=== PATIENT | female | born 1995 ===

== ENCOUNTER 2018-11-21 10:47 | Emergency (ER) | payer MEDICAID ==
--- NOTE | 2018-11-21 14:12 | EDM.PDOC ---
ED HPI GENERAL MEDICAL PROBLEM - General Chief Complaint: [employer] Problem Stated Complaint: CRAMPING AND PAIN, THINKS MISCARRIED Time Seen by Provider: 11/21/18 11:00 Source of Information: Reports: Patient History Limitations: Reports: No Limitations - History of Present Illness INITIAL COMMENTS - FREE TEXT/NARRATIVE: seen last week in [facility] care after positive home test X2. Was told she's probably 1-2 weeks along, she thinks maybe more like 4. LMP 16 October, heavy. This morning at work started to have significant suprapubic cramping and vaginal bleeding. No urinary symptoms such as urgency, frequency, foul smell. Passed a couple large clots then came here. No previous . Was on depo shot, last dose Mar, stopped in June, but periods have been quite irregular. Has known boyfriend a long time and sexually active the past couple months. No history STD or testing. Does not feel lightheaded, dizzy, or any other abdominal pain, just very strong menstrual cramps. No diarrhea or vomiting. Lower abdominal Pain Score (Numeric/FACES): 2 - Related Data Allergies Allergy/AdvReac Type Severity Reaction Status Date / Time No Known Allergies Allergy Verified 11/21/18 12:30 Home Meds: Home Meds Vit #76/Iron,Carb/Fa [Prenatabs Rx] 1 tab DAILY 11/21/18 [History] Past Medical History Respiratory History: Reports: Asthma Genitourinary History: Reports: None [employer] History: Reports: : 1 Para: 0 LMP (Approximate): 1 Month Other [employer] History: Neurological History: Reports: Migraines Psychiatric History: Reports: Anxiety, Panic Attack - Past Surgical History HEENT Surgical History: Reports: Adenoidectomy, Tonsillectomy Female Surgical History: Reports: None Social & Family History - Family History Family Medical History: Noncontributory - Tobacco Use Smoking Status *Q: Never Smoker - Caffeine Use Caffeine Use: Reports: Coffee, Energy Drinks, Soda, Tea - Alcohol Use Alcohol Use History: Yes Alcohol Use Comment: occasional social drink. Stopped once she found out she was . - Recreational Drug Use Recreational Drug Use: No - Living Situation & Occupation Social History Comment: family about 2 hrs away, roommate accompanies today, sexually active 1 partner, has known for several years. ED ROS GENERAL - Review of Systems Review Of Systems: ROS reveals no pertinent complaints other than HPI. ED EXAM, GENERAL - Physical Exam Exam: See Below Free Text/Narrative:: General: alert, pleasant no acute distress. Heart regular, rate 70's, lungs clear no wheezes or crackles. Abdomen + bowel sounds, soft, nondistended, nontender with no rebound or guarding. Pelvic: normal external female genitalia. Scant blood in vaginal vault, os appears slightly open, no obvious clots or POC. Bimanual - carefully avoided os or any palpation of cervix, but no adnexal tenderness. GC collected. Course - Vital Signs Text/Narrative:: initially evaluated completed, explained procedure for pelvic, will get labs, need to arrange followup for 48-72 hours from now. All questions answered. Last Recorded V/S: Last Vital Signs Temp 36.7 C 11/21/18 14:22 Pulse 74 11/21/18 14:22 Resp 15 11/21/18 14:22 BP 112/64 11/21/18 14:22 Pulse Ox 100 11/21/18 14:22 - Orders/Labs/Meds Orders: Active Orders 24 hr Category Date Time Status ABO/RH TYPE [BBK] Stat Lab 11/21/18 12:20 Results CHLAMYDIA/GC AMPLIFICATION Stat Lab 11/21/18 13:48 Received PATIENT RETYPE [BBK] Stat Lab 11/21/18 12:20 Results Labs: Laboratory Tests 11/21/18 11/21/18 11/21/18 Range/Units 12:20 12:20 12:20 WBC 10.2 (4.5-12.0) X10-3/uL RBC 4.90 (3.23-5.20) x10(6)uL Hgb 13.7 (11.5-15.5) g/dL Hct 41.5 (30.0-51.3) % MCV 84.7 (80-96) fL MCH 28.0 (27.7-33.6) pg MCHC 33.1 (32.2-35.4) g/dL RDW 12.7 (11.5-15.5) % Plt Count 247 (125-369) X10(3)uL MPV 8.6 (7.4-10.4) fL Neut % (Auto) 69.1 (46-82) % Lymph % (Auto) 21.9 (13-37) % Nicollet % (Auto) 5.4 (4-12) % Eos % (Auto) 3 (1.0-5.0) % Baso % (Auto) 1 (0-2) % Neut # (Auto) 7.1 (1.6-8.3) # Lymph # (Auto) 2.2 (0.6-5.0) # Nicollet # (Auto) 0.5 (0.0-1.3) # Eos # (Auto) 0.3 (0.0-0.8) # Baso # (Auto) 0.1 (0.0-0.2) # HCG, Quant < 5 L (<5) mIU/mL Blood Type A POSITIVE - Re-Assessments/Exams Free Text/Narrative Re-Assessment/Exam: 11/21/18 pelvic completed, probably active miscarriage given open os. Labs reviewed - unmeasurable quant, blood type A+, Hb normal. Results explained to patient, tylenol ok for pain, should followup in 2-3 days. Spent some additional time explaining process of workup, note provided for work, patient wants to contact her own physician for [place] in [place]. Discussed warning signs/symptoms that would prompt need for repeat ED evaluation , all questions answered. Patient has good support in friend and also talked to her mom on the phone, seemed ok at departure. Departure - Departure Time of Disposition: 14:05 Disposition: Home, Self-Care 01 Condition: Fair Clinical Impression: Miscarriage, Threatened - Discharge Information *PRESCRIPTION DRUG MONITORING PROGRAM REVIEWED*: Not Applicable *COPY OF PRESCRIPTION DRUG MONITORING REPORT IN PATIENT RAMIRO: Not Applicable Instructions: Miscarriage, [id number] Referrals: PCP,None [Primary Care Provider] - Forms: ED Department Discharge Additional Instructions: followup in 48-72 hours -- appointment paperwork they might repeat laboratory work blood type is A+ HCG here was less than 5 if worsening bleeding: enough to soak through two pads per hour (or tampons) for 2-3 hours or more or feeling lightheaded when you stand up, or heart racing (when you check your pulse, it is faster than 120 after lying down for 10 minutes) or worsening cramping abdominal pain that causes you to double over return to ER note given to be off work through Friday 11/24 - My Orders Last 24 Hours: My Active Orders 11/21/18 12:20 ABO/RH TYPE [BBK] Stat PATIENT RETYPE [BBK] Stat 11/21/18 13:48 CHLAMYDIA/GC AMPLIFICATION Stat - Assessment/Plan Last 24 Hours: My Active Orders 11/21/18 12:20 ABO/RH TYPE [BBK] Stat PATIENT RETYPE [BBK] Stat 11/21/18 13:48 CHLAMYDIA/GC AMPLIFICATION Stat
[2018-11-23 09:13] LABS: CHLAMYDIA TRACHOMATIS, NAA Positive (Negative); NEISSERIA GONORRHOEAE, NAA Negative (Negative)
== END 2018-11-21 14:24 | disposition home or self-care (01) ==
LOC: FB.ED 10:47
DX: O03.9 Complete or unspecified spontaneous abortion without complication (principal)
CPT/HCPCS: 36415; 84702; 85025; 86900; 86901; 87491; 87591; 99283

== ENCOUNTER 2018-11-21 22:09 | Emergency (ER) | payer MEDICAID ==
--- NOTE | 2018-11-21 22:54 | EDM.PDOC ---
ED HPI GENERAL MEDICAL PROBLEM - General Stated Complaint: BLEEDING POSS MISCARRIAGE Time Seen by Provider: 11/21/18 22:15 - History of Present Illness INITIAL COMMENTS - FREE TEXT/NARRATIVE: seen earlier today, probably miscarriage, went home, laid down for nap and after getting up she was bleeding a lot heavier again. Slightly lightheaded when first got up, better now. Worried and came back. Still menstrual cramp feeling, no other pain, no urinary symptoms, no fever, ate ok. Still some clots , and lower abdominal cramping. No other symptoms or concerns. 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 ED EXAM, GENERAL - Physical Exam Exam: See Below Free Text/Narrative:: General: alert, pleasant no acute distress. heart: regular, rate 60's. Lungs clear, no wheezes or crackles. Abdomen + bowel sounds, soft, nontender throughout. Pelvic completed earlier today, no reason to repeat. Course - Vital Signs Text/Narrative:: stable vitals, given description at this time would not repeat labs. Abdominal exam completely benign. Encouraged PO, followup in 2-3 days, she is in agreement with this plan. Departure - Departure Time of Disposition: 22:52 Disposition: Home, Self-Care 01 Condition: Fair Clinical Impression: Miscarriage - Discharge Information *PRESCRIPTION DRUG MONITORING PROGRAM REVIEWED*: Not Applicable *COPY OF PRESCRIPTION DRUG MONITORING REPORT IN PATIENT RAMIRO: Not Applicable Instructions: Miscarriage Referrals: PCP,None [Primary Care Provider] - Additional Instructions: followup on or Tuesday if thirsty, you should drink to help replace fluid you are losing continue prenatals, may want to get iron supplement and take for 2-3 weeks recommend full menstrual cycle (1 mo) before trying to get again.
== END 2018-11-21 23:10 | disposition home or self-care (01) ==
LOC: FB.ED 22:09
DX: O03.9 Complete or unspecified spontaneous abortion without complication (principal)
CPT/HCPCS: 99283